=== PATIENT | female | born 1990 | race Caucasian/White ===

== ENCOUNTER → 2016-09-13 | Outpatient (CLI) | payer BC ==
[2015-07-15 05:20] VITALS: BP 139/86
== END ==
LOC: LAB 09:08
DX: K52.9 Noninfective gastroenteritis and colitis, unspecified (principal); G62.9 Polyneuropathy, unspecified

== ENCOUNTER → 2019-05-17 | Outpatient (CLI) | payer BC ==
[2015-07-15 05:20] VITALS: BP 139/86
[2019-05-17 17:59] LABS: EOS # 0.2 (0.04-0.40); EOS % 2.6 % (1.0-5.0); HEMATOCRIT 40.5 % (37.0-47.0); LYMPH# 2.2 (1.50-4.00); MEAN CELL VOLUME 91 fl (78-100); MEAN CORPUSCULAR HEMOGLOBIN 29 pg (27-31); MEAN CORPUSCULAR HGB CONC 32 g/dL (33-37); MEAN PLATELET VOLUME 10.2 fl (7.4-10.4); MONO # 0.6 (0.20-0.80); NEU # 2.7 (1.40-6.50); PLATELET COUNT 293 K/mm3 (130-400); RED BLOOD COUNT 4.44 M/mm3 (4.10-5.30); RED CELL DISTRIBUTION WIDTH 13.7 % (11.5-14.5); WHITE BLOOD COUNT 5.7 K/mm3 (4.8-10.8)
[2019-05-17 18:10] LABS: POTASSIUM 3.8 mmol/L (3.5-5.1)
[2019-05-17 18:11] LABS: ALBUMIN 4.4 g/dL (3.5-5.0)
[2019-05-17 18:12] LABS: CALCIUM 10.1 mg/dL (8.3-10.5)
[2019-05-17 18:13] LABS: TOTAL PROTEIN 8.1 g/dL (6.4-8.3)
[2019-05-17 18:15] LABS: TOTAL BILIRUBIN 0.2 mg/dL (0.2-1.2)
[2019-05-18 16:45] LABS: FOLLICLE STIMULATING HORMONE 5.4 mIU/mL (())
== END ==
LOC: LAB 17:47
PROVIDERS: Physician Assistant
DX: Z13.220 Encounter for screening for lipoid disorders (principal); Z13.29 Encounter for screening for other suspected endocrine disorder; I10 Essential (primary) hypertension; L67.8 Other hair color and hair shaft abnormalities; N92.6 Irregular menstruation, unspecified; F43.0 Acute stress reaction; L20.9 Atopic dermatitis, unspecified

== ENCOUNTER → 2019-12-17 | Outpatient (CLI) | payer BC ==
[2015-07-15 05:20] VITALS: BP 139/86
== END ==
LOC: LAB 08:23
DX: J02.9 Acute pharyngitis, unspecified (principal); Z20.828 Contact with and (suspected) exposure to other viral communicable diseases

== ENCOUNTER → 2021-01-01 | Outpatient (CLI) | payer BC ==
[2021-01-01 10:20] LABS: BASO # 0.02 (0.02-0.10); EOS # 0.09 (0.04-0.40); HEMATOCRIT 43.5 % (37.0-47.0); HEMOGLOBIN 14.2 g/dL (12.5-16.0); LYMPH# 1.66 (1.50-4.00); MEAN CELL VOLUME 96 fl (78-100); MEAN CORPUSCULAR HEMOGLOBIN 31 pg (27-31); MEAN CORPUSCULAR HGB CONC 33 g/dL (33-37); MEAN PLATELET VOLUME 10.7 fl (7.4-10.4); MONO # 0.39 (0.20-0.80); NEU # 2.41 (1.40-6.50); PLATELET COUNT 219 K/mm3 (130-400); RED BLOOD COUNT 4.55 M/mm3 (4.10-5.30); RED CELL DISTRIBUTION WIDTH 12.6 % (11.5-14.5); WHITE BLOOD COUNT 4.6 K/mm3 (4.8-10.8)
[2021-01-01 10:27] LABS: ALBUMIN 4.2 g/dL (3.5-5.0); POTASSIUM 4.4 mmol/L (3.5-5.1)
[2021-01-01 10:28] LABS: CALCIUM 9.8 mg/dL (8.3-10.5)
[2021-01-01 10:29] LABS: TOTAL PROTEIN 7.7 g/dL (6.4-8.3)
[2021-01-01 10:31] LABS: TOTAL BILIRUBIN 0.5 mg/dL (0.2-1.2)
== END ==
LOC: LAB 09:52
PROVIDERS: Physician Assistant
DX: Z00.00 Encounter for general adult medical examination without abnormal findings (principal); Z13.29 Encounter for screening for other suspected endocrine disorder; I10 Essential (primary) hypertension; E78.5 Hyperlipidemia, unspecified; K90.9 Intestinal malabsorption, unspecified

== ENCOUNTER → 2021-05-04 | Outpatient (CLI) | payer BC | LOC: LAB 07:54 | DX: R19.7 Diarrhea, unspecified (principal) ==

== ENCOUNTER → 2023-09-14 | Outpatient (CLI) | payer BC ==
[2023-10-31 11:37] LABS: ANA SCREEN with REFLEX NEG
[2023-10-31 11:46] LABS: ALBUMIN 4.3 g/dL (3.5-5.0); CALCIUM 9.8 mg/dL (8.3-10.5); TOTAL BILIRUBIN 0.3 mg/dL (0.2-1.2); TOTAL PROTEIN 7.7 g/dL (6.4-8.3)
[2023-10-31 11:53] LABS: BASO # 0.02 K/mm3 (0.02-0.10); EOS # 0.09 K/mm3 (0.04-0.40); EOS % 2.3 % (1.0-5.0); HEMATOCRIT 42.7 % (37.0-47.0); HEMOGLOBIN 13.7 g/dL (12.5-16.0); LYMPH# 1.28 K/mm3 (1.50-4.00); MEAN CELL VOLUME 95 fl (78-100); MEAN CORPUSCULAR HEMOGLOBIN 30 pg (27-31); MEAN CORPUSCULAR HGB CONC 32 g/dL (33-37); MEAN PLATELET VOLUME 10.9 fl (7.4-10.4); NEU # 2.17 K/mm3 (1.40-6.50); PLATELET COUNT 257 K/mm3 (130-400); RED BLOOD COUNT 4.52 M/mm3 (4.10-5.30)
== END ==
LOC: LAB 08:00
PROVIDERS: Physician Assistant
DX: Z13.220 Encounter for screening for lipoid disorders (principal); I10 Essential (primary) hypertension; N92.1 Excessive and frequent menstruation with irregular cycle; M25.50 Pain in unspecified joint